=== PATIENT | male | born 2000 | race Two or more races ===

== ENCOUNTER 2019-04-20 20:44 | Emergency (ER) | payer SELFPAY ==
[~2019-04-20] VITALS: Ht 170.2 cm; Wt 73.0 kg
[2019-04-20] MEDS ORDERED: IBUPROFEN 600 MG TAB PO ONE (21:15)
[2019-04-20 22:09] VITALS: BP 157/86
== END 2019-04-20 22:09 | disposition home or self-care (01) ==
LOC: ER 20:48
DX: M54.2 Cervicalgia (principal); M54.9 Dorsalgia, unspecified; V43.52XA Car driver injured in collision with other type car in traffic accident, initial encounter; Y93.89 Activity, other specified; Y92.410 Unspecified street and highway as the place of occurrence of the external cause; Y99.8 Other external cause status
CPT/HCPCS: 72040; 73030